=== PATIENT | female | born 1980 ===

== ENCOUNTER 2016-09-12 21:22 | Observation (INO) | payer MEDICAID ==
[2016-09-12 21:22] VITALS: BMI 29.2
--- NOTE | 2016-09-12 21:46 | C.PDOC ---
History Of Present Illness Patient was brought in by police to the ER after mother called 911 due to patient becoming increasing aggressive and threatening. Mother reports patient has a Hx schizophrenia and notes she has recently had her medications changed, since then patient has been aggressive and threatening. Patient denies any physical complaints at this time. Time Seen by Provider: 09/12/16 21:45 Chief Complaint (Nursing): Psychiatric Evaluation History Per: Family History/Exam Limitations: no limitations Onset/Duration Of Symptoms: Hrs Current Symptoms Are (Timing): Still Present Suicide/Self Injury Attempted (Context): None Modifying Factor(s): None Severity: None Pain Scale Rating Of: 0 Associated Symptoms: Other (Aggression) Involuntary Hold By: None Recent travel outside of the [place]: No Additional History Per: EMS, Law Enforcement Past Medical History Reviewed: Historical Data, Nursing Documentation, Vital Signs Vital Signs: Last Vital Signs Temp 98.1 F 09/13/16 03:45 Pulse 132 H 09/13/16 04:40 Resp 23 09/13/16 04:40 BP 113/64 09/13/16 04:40 Pulse Ox 98 09/13/16 05:22 - Medical History PMH: Anxiety, Depression, Diabetes, HTN, Hypercholesterolemia, Schizophrenia Surgical History: No Surg Hx - [facility] Procedures INDIVID PSYCHOTHERAP NEC (10/16/12) INJECT/INFUSE ELECTROLYT (12/07/12) INJECT/INFUSE NEC (12/07/12) OTHER GROUP THERAPY (10/16/12) PSYCHIAT DRUG THERAP NEC (10/16/12) Family History: States: No Known Family Hx - Social History Hx Alcohol Use: No Hx Substance Use: No - Immunization History Hx Tetanus Toxoid Vaccination: No Hx Influenza Vaccination: No Hx Pneumococcal Vaccination: No Review Of Systems Constitutional: Negative for: Fever, Chills Gastrointestinal: Negative for: Nausea, Vomiting, Diarrhea Psych: Positive for: Other (Schizophrenia, aggression) Physical Exam - Physical Exam Appears: Non-toxic Skin: Warm, Dry Oral Mucosa: Moist Chest: Symmetrical, No Tenderness Cardiovascular: Rhythm Regular, No Murmur Respiratory: No Rales, No Rhonchi, No Wheezing Gastrointestinal/Abdominal: Soft, No Tenderness Neurological/Psych: Oriented x3 ED Course And Treatment - Laboratory Results Result Diagrams: 09/12/16 22:08 09/12/16 22:08 ECG: Interpreted By Me, Viewed By Me ECG Rhythm: Sinus Rhythm (91), Nonspecific Changes O2 Sat by Pulse Oximetry: 98 (Room air) Pulse Ox Interpretation: Normal - Radiology CXR: Interpreted by Me, Viewed By Me CXR Interpretation: No: Infiltrates, Fracture, Pnemothorax Progress Note: Blood work and urinalysis ordered. Pt medically cleared for [facility] screener ED OBSERVATION Date of observation admission: 09/13/16 Time of observation admission: 00:02 - Observation admission statement Patient is being placed in observation because:: acute psychosis, schizophrenia - Goals of Observation Goals of observation are:: crisis eval - Progress Note Progress Note: 09/13/16 00:03 vitals stable, less agitated., mother at bedside 09/13/16 02:11 awaiting crisis eval 09/13/16 05:12 screaming, agitated, requiring sedation continuing 1:1 precautions Disposition Counseled Patient/Family Regarding: Studies Performed, Diagnosis - Disposition Disposition Time: 21:46 Condition: FAIR - Clinical Impression Clinical Impression: Schizophrenia - Scribe Statement The provider has reviewed the documentation as recorded by the Scribe Vince Hawkins All medical record entries made by the Scribe were at my direction and personally dictated by me. I have reviewed the chart and agree that the record accurately reflects my personal performance of the history, physical exam, medical decision making, and the department course for this patient. I have also personally directed, reviewed, and agree with the discharge instructions and disposition. Physician Patient Turnover Patient Signed Over To: Johnson Brock Handoff Comments: pending [facility] screener Decision To Admit - . Patient Diagnosis: Schizophrenia
[2016-09-12 22:11] LABS: BASO % 0.4 % (0.0-2.0); EOS % 0.4 % (0.0-4.0); HEMATOCRIT 39.7 % (34.0-47.0); LYMPH # 2.9 K/uL (1.0-4.3); LYMPH % 26.1 % (20.0-40.0); MEAN CELL VOLUME 80.6 fL (81.0-99.0); MEAN CORPUSCULAR HEMOGLOBIN 27.5 pg (27.0-31.0); MEAN CORPUSCULAR HGB CONC 34.1 g/dL (33.0-37.0); MEAN PLATELET VOLUME 8.7 fL (7.2-11.7); MONO # 0.6 K/uL (0.0-0.8); MONO % 5.2 % (0.0-10.0); RED CELL DISTRIBUTION WIDTH 14.4 % (11.5-14.5)
[2016-09-12 22:17] LABS: URINE BILIRUBIN NEGATIVE (NEGATIVE); URINE BLOOD NEGATIVE (NEGATIVE); URINE COLOR Straw (YELLOW); URINE GLUCOSE (UA) NORMAL (Normal); URINE KETONE 1+ mg/dL (NEGATIVE); URINE LEUKOCYTE ESTERASE NEG Leu/uL (Negative); URINE PROTEIN NEGATIVE (NEGATIVE); URINE UROBILINOGEN NORMAL mg/dL (0.2-1.0); WBC URINE 1 /hpf (0-5)
[2016-09-12 22:21] LABS: CHLORIDE 97 mmol/L (98-107)
[2016-09-12 22:22] LABS: SODIUM 133 mmol/L (132-148)
[2016-09-12 22:25] LABS: ALB/GLOB RATIO 1.4 (1.0-2.1); ALKALINE PHOSPHATASE 105 U/L (38-126); ALT/SGPT 71 U/L (9-52); AST/SGOT 47 U/L (14-36); BILIRUBIN,TOTAL 0.9 mg/dL (0.2-1.3); CALCIUM 9.7 mg/dl (8.6-10.4); CARBON DIOXIDE 19 mmol/L (22-30); GFR AFRICAN-AMERICAN > 60; GLUCOSE,RANDOM 194 mg/dL (65-105); TOTAL PROTEIN 8.1 g/dL (6.3-8.3)
[2016-09-12 22:26] LABS: ALCOHOL SERUM < 10 mg/dl (0-10); BLOOD UREA NITROGEN 2 mg/dL (7-17)
[2016-09-13 07:35] VITALS: RESP 18; O2SAT 97
--- NOTE | 2016-09-13 08:21 | RAD ---
PROCEDURE: CHEST RADIOGRAPH, 1 VIEW. Technique: Single view portable semi erect @ 05:30 HISTORY: psych screening COMPARISON: 11/18/2015. FINDINGS: LUNGS: Clear. PLEURA: No pneumothorax or pleural fluid seen. CARDIOVASCULAR: Normal. OSSEOUS STRUCTURES: No significant abnormalities. VISUALIZED UPPER ABDOMEN: Normal. OTHER FINDINGS: None. IMPRESSION: No active disease. No acute/significant interval changes.
[2016-09-13 11:31] VITALS: BP 119/78; PULSE 87; TEMP 98.5
--- NOTE | 2016-09-18 21:52 | CARD ---
APPROVED REPORT EKG Measurement Heart [id number] <Conclusion> Normal sinus rhythm Normal ECG
== END 2016-09-13 11:44 | disposition home or self-care (01) ==
LOC: C.ER 21:22 → C.9OBSV 09-13 00:02
PROVIDERS: ADMIT Emergency Medicine; ATTEND Emergency Medicine
DX: F20.9 Schizophrenia, unspecified (principal); E11.9 Type 2 diabetes mellitus without complications; I10 Essential (primary) hypertension; E78.00 Pure hypercholesterolemia, unspecified
CPT/HCPCS: 71010; 80053; 80320; 80324; 80345; 80346; 80349; 80353; 80358; 80361; 81001; 82948; 83992; 84703; 85025; 96372; 99285; G0378; J2060; J3486

== ENCOUNTER 2016-09-24 19:52 | Emergency (ER) | payer MEDICAID ==
[2016-09-24 19:56] VITALS: BMI 29.2
[2016-09-24 20:35] LABS: BASO % 0.3 % (0.0-2.0); EOS % 0.2 % (0.0-4.0); HEMATOCRIT 40.7 % (34.0-47.0); LYMPH # 2.2 K/uL (1.0-4.3); LYMPH % 13.6 % (20.0-40.0); MEAN CELL VOLUME 80.1 fL (81.0-99.0); MEAN CORPUSCULAR HEMOGLOBIN 27.1 pg (27.0-31.0); MEAN CORPUSCULAR HGB CONC 33.8 g/dL (33.0-37.0); MEAN PLATELET VOLUME 8.7 fL (7.2-11.7); MONO # 0.8 K/uL (0.0-0.8); MONO % 5.2 % (0.0-10.0); RED CELL DISTRIBUTION WIDTH 14.5 % (11.5-14.5); WHITE BLOOD COUNT 16.4 K/uL (4.8-10.8)
[2016-09-24 20:43] LABS: CHLORIDE 98 mmol/L (98-107)
[2016-09-24 20:44] LABS: POTASSIUM 3.5 mmol/L (3.6-5.2); RBC URINE < 1 /hpf (0-3); SODIUM 136 mmol/L (132-148); URINE BACTERIA RARE (<OCC); URINE BILIRUBIN NEGATIVE (NEGATIVE); URINE BLOOD NEGATIVE (NEGATIVE); URINE COLOR Yellow (YELLOW); URINE GLUCOSE (UA) 1+ mg/dL (Normal); URINE KETONE TRACE mg/dL (NEGATIVE); URINE LEUKOCYTE ESTERASE NEG Leu/uL (Negative); URINE PROTEIN NEGATIVE (NEGATIVE); URINE UROBILINOGEN NORMAL mg/dL (0.2-1.0); WBC URINE 1 /hpf (0-5)
[2016-09-24 20:46] LABS: ALB/GLOB RATIO 2.2 (1.0-2.1); ALKALINE PHOSPHATASE 108 U/L (38-126); AST/SGOT 42 U/L (14-36); BILIRUBIN,TOTAL 0.6 mg/dL (0.2-1.3); CARBON DIOXIDE 22 mmol/L (22-30); GFR AFRICAN-AMERICAN > 60; TOTAL PROTEIN 8.6 g/dL (6.3-8.3)
[2016-09-24 20:47] LABS: ALCOHOL SERUM < 10 mg/dl (0-10); ALT/SGPT 64 U/L (9-52); CALCIUM 9.8 mg/dl (8.6-10.4); GLUCOSE,RANDOM 196 mg/dL (65-105)
[2016-09-24 20:48] LABS: BLOOD UREA NITROGEN 2 mg/dL (7-17)
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
[2016-09-24 23:28] VITALS: RESP 18
[2016-09-25 00:50] VITALS: BP 139/79; PULSE 100; TEMP 98.8; O2SAT 95
== END 2016-09-25 00:53 | disposition home or self-care (01) ==
LOC: C.ER 19:52
DX: F20.9 Schizophrenia, unspecified (principal); F41.9 Anxiety disorder, unspecified; F32.9 Major depressive disorder, single episode, unspecified
CPT/HCPCS: 80053; 80320; 80324; 80345; 80346; 80349; 80353; 80358; 80361; 81001; 82948; 83992; 84703; 85025; 96372; 99284; J3486

== ENCOUNTER 2016-10-21 16:15 | Observation (INO) | payer MEDICAID ==
[2016-10-21 16:16] VITALS: BMI 29.2
--- NOTE | 2016-10-21 17:06 | C.PDOC ---
History Of Present Illness <GrabielEric R - Last Filed: 10/22/16 06:35> <Louisa Gonzalez A - Last Filed: 10/22/16 09:25> <Johnson Brock - Last Filed: 10/23/16 21:19> 35F brought in by her mother for "walking out of the house and getting lost" several times over the last few days. she was at [facility] 2 days ago for similar complaints, eval by [facility] and dc from there. she says she gives her daughter her meds at home. (Johnson Brock) <GrabielEric R - Last Filed: 10/22/16 06:35> <Louisa Gonzalez A - Last Filed: 10/22/16 09:25> <Johnson Brock - Last Filed: 10/23/16 21:19> Time Seen by Provider: 10/21/16 16:18 Past Medical History - Medical History PMH: Anxiety, Depression, HTN, Hypercholesterolemia, Schizophrenia Denies: Diabetes, Hepatitis, HIV, Seizures, Sexually Transmitted Disease Surgical History: Appendectomy Family History: States: Other Other Family History: nc - Social History Hx Alcohol Use: No Hx Substance Use: No - Immunization History Hx Tetanus Toxoid Vaccination: Yes Hx Influenza Vaccination: Yes Hx Pneumococcal Vaccination: Yes <Johnson Brock - Last Filed: 10/23/16 21:19> Vital Signs: Last Vital Signs Temp 98.2 F 10/22/16 11:00 Pulse 98 H 10/22/16 11:00 Resp 16 10/22/16 11:00 BP 128/70 10/22/16 11:00 Pulse Ox 100 10/22/16 11:00 - [facility] Procedures INDIVID PSYCHOTHERAP NEC (10/16/12) INJECT/INFUSE ELECTROLYT (12/07/12) INJECT/INFUSE NEC (12/07/12) OTHER GROUP THERAPY (10/16/12) PSYCHIAT DRUG THERAP NEC (10/16/12) Review Of Systems Review Of Systems: ROS cannot be obtained secondary to pt's inabilty to answer questions. <Johnson Brock - Last Filed: 10/23/16 21:19> Physical Exam - Physical Exam Appears: Non-toxic, No Acute Distress Skin: Warm, Dry Head: Atraumatic Eye(s): bilateral: PERRL Nose: No Epistaxis Oral Mucosa: Moist Neck: Normal ROM Cardiovascular: Rhythm Regular Respiratory: No Decreased Breath Sounds, No Accessory Muscle Use, No Rales, No Rhonchi, No Stridor, No Wheezing Gastrointestinal/Abdominal: Soft, No Distention Extremity: No Swelling Neurological/Psych: Other (no focal deficits) <Johnson Brock - Last Filed: 10/23/16 21:19> ED Course And Treatment - Laboratory Results Result Diagrams: 10/21/16 18:24 10/21/16 18:24 Urine POC: Negative ECG: Interpreted By Me, Viewed By Me ECG Rhythm: Sinus Rhythm ECG Interpretation: Normal, No Acute Changes Interpretation Of ECG: NSR, normal tracings Rate From EC Pulse Ox Interpretation: Normal - Radiology CXR: Interpreted by Me, Viewed By Me CXR Interpretation: Yes: No Acute Disease, Other (normal chest film). No: Infiltrates Progress Note: Patient is medically cleared for crisis evaluation by [facility] Reevaluation Time: 21:17 <Eric Spain - Last Filed: 10/22/16 06:35> - Laboratory Results Result Diagrams: 10/21/16 18:24 10/21/16 18:24 <Louisa Gonzalez - Last Filed: 10/22/16 09:25> - Laboratory Results Result Diagrams: 10/21/16 18:24 10/21/16 18:24 <Johnson Brock - Last Filed: 10/23/16 21:19> Medical Decision Making <Eric Spain - Last Filed: 10/22/16 06:35> <Louisa Gonzalez A - Last Filed: 10/22/16 09:25> <Johnson Brock - Last Filed: 10/23/16 21:19> Medical Decision Makin:45. Pending screener from [facility] (Eric Spain) [address] bake room worker who is familiar with this pt. she has significant psychiatric illness at baseline. will come evaluate. (Johnson Brock) Disposition <Eric Spain - Last Filed: 10/22/16 06:35> Counseled Patient/Family Regarding: Studies Performed, Diagnosis, Need For Followup - Disposition Disposition Time: 09:25 - POA Present On Arrival: None <Louisa Gonzalez - Last Filed: 10/22/16 09:25> <Johnson Brock - Last Filed: 10/23/16 21:19> - Disposition Disposition: HOME/ ROUTINE Condition: STABLE - Clinical Impression Clinical Impression: Evaluation by psychiatric service required Addendum <Eric Spain - Last Filed: 10/22/16 06:35> <Louisa Gonzalez - Last Filed: 10/22/16 09:25> <Johnson Brock - Last Filed: 10/23/16 21:19> Addendum: 10/21/16 21:18 _Patient is medically cleared for psych. eval. by [facility] screener. EKG and Chest X -ray are normal. (Eric Spain) 10/22/16 09:25 Patient has been cleared for discharge from psychiatric standpoint (by Dr. Esparza ). Mother is here to take patient home - will discharge. (Louisa Gonzalez) Physician Patient Turnover Patient Signed Over To: Eric Spain Handoff Comments: pending psych recs <Johnson Brock - Last Filed: 10/23/16 21:19>
[2016-10-21 18:03] LABS: HCG,QUALITATIVE URINE NEGATIVE (NEGATIVE)
[2016-10-21 18:04] LABS: URINE BILIRUBIN NEGATIVE (NEGATIVE); URINE BLOOD NEGATIVE (NEGATIVE); URINE CLARITY Clear (Clear); URINE COLOR Straw (YELLOW); URINE GLUCOSE (UA) 1+ mg/dL (Normal); URINE LEUKOCYTE ESTERASE NEG Leu/uL (Negative); URINE NITRATE NEGATIVE (NEGATIVE); URINE PROTEIN NEGATIVE (NEGATIVE); URINE UROBILINOGEN NORMAL mg/dL (0.2-1.0)
[2016-10-21 18:05] LABS: BARBITURATES, UR NEGATIVE (NEGATIVE); BENZODIAZEPINES, UR NEGATIVE (NEGATIVE)
[2016-10-21 18:08] LABS: OPIATES, UR NEGATIVE (NEGATIVE); PHENCYCLIDINE, UR NEGATIVE (NEGATIVE)
[2016-10-21 18:26] LABS: BASO % 0.4 % (0.0-2.0); EOS % 0.2 % (0.0-4.0); LYMPH # 3.1 K/uL (1.0-4.3); LYMPH % 27.5 % (20.0-40.0); MEAN CORPUSCULAR HEMOGLOBIN 26.4 pg (27.0-31.0); MEAN CORPUSCULAR HGB CONC 33.5 g/dL (33.0-37.0); MEAN PLATELET VOLUME 8.5 fL (7.2-11.7); MONO # 0.6 K/uL (0.0-0.8); NEUT # 7.5 K/uL (1.8-7.0); NEUT % 66.9 % (50.0-75.0); NRBC % 0.1 % (0.0-2.0); RBC 5.3 Mil/uL (3.80-5.20); RED CELL DISTRIBUTION WIDTH 14.6 % (11.5-14.5); WHITE BLOOD COUNT 11.3 K/uL (4.8-10.8)
[2016-10-21 18:34] LABS: ALBUMIN 4.6 g/dL (3.5-5.0)
[2016-10-21 18:37] LABS: ALB/GLOB RATIO 1.2 (1.0-2.1); ALT/SGPT 59 U/L (9-52); AST/SGOT 45 U/L (14-36); BLOOD UREA NITROGEN 3 mg/dL (7-17); GFR AFRICAN-AMERICAN > 60; GFR NON-AFRICAN AMERICAN > 60
[2016-10-21 18:38] LABS: CALCIUM 10.4 mg/dl (8.6-10.4)
--- NOTE | 2016-10-22 08:19 | RAD ---
PROCEDURE: CHEST RADIOGRAPH, 1 VIEW HISTORY: clearance for transfer COMPARISON: 09/13/2016 FINDINGS: LUNGS: Mild venous congestion. Left hilar prominence. Patchy increased markings at the right infrahilar region. PLEURA: No pneumothorax or pleural fluid seen. CARDIOVASCULAR: Normal. OSSEOUS STRUCTURES: No significant abnormalities. VISUALIZED UPPER ABDOMEN: Normal. OTHER FINDINGS: None. IMPRESSION: Mild venous congestion. Left hilar prominence. Patchy increased markings at the right infrahilar region.
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
[2016-10-22 11:01] VITALS: BP 128/70; PULSE 98; RESP 16; TEMP 98.2; O2SAT 100
--- NOTE | 2016-10-24 10:47 | CARD ---
APPROVED REPORT EKG Measurement Heart [id number] CA 130P47 [id number] <Conclusion> Normal sinus rhythm Cannot rule out Anterior infarct, age undetermined Abnormal ECG
== END 2016-10-22 09:29 | disposition home or self-care (01) ==
LOC: C.ER 16:15 → C.9OBSV 21:11 → UNDODISOB 10-22 09:29
PROVIDERS: ADMIT Emergency Medicine; ATTEND Emergency Medicine
DX: F20.9 Schizophrenia, unspecified (principal); E78.00 Pure hypercholesterolemia, unspecified; F79 Unspecified intellectual disabilities; I10 Essential (primary) hypertension; I25.2 Old myocardial infarction; Q21.1 Atrial septal defect
CPT/HCPCS: 71010; 80053; 80320; 80324; 80345; 80346; 80349; 80353; 80358; 80361; 81001; 83992; 84703; 85025; 96372; 99285; G0378; J2060